=== PATIENT | male | born 1940 | race Caucasian/White ===

== ENCOUNTER 2019-10-01 10:31 | Outpatient (CLI) | payer MEDICARE, SELFPAY ==
[2019-10-01 11:05] LABS: Hematocrit 40.9 % (42.0-52.0); Hemoglobin 12.2 g/dL (14.0-18.0); Immature Reticulocyte Fraction 34.1 % (3.0-15.9); Mean Corpuscular HGB Conc 29.8 g/dl (32-36); Mean Corpuscular Hemoglobin 25.7 pg (26-34); Mean Corpuscular Volume 86.3 fl (80-100); Platelet Count Result 43 k/mm3 (150-375); Red Blood Count 4.74 M/mm3 (4.6-6.20); Red Cell Distribution Width 19.2 % (11.5-14.5); Reticulocyte Hemoglobin Conten 25.2 pg (28.2-35.7); Reticulocytes Absolute 0.18 B/L (32.2-175.7); White Blood Count 5.5 K/mm3 (4.5-10.0)
[2019-10-01 11:22] LABS: Band Neutrophils Percent 14 % (0-6); Lymphocytes Absolute Manual 1.59 K/mm3 (1.1-4.5); Metamyelocytes Percent 7 %; Monocytes Absolute Manual 0.55 K/mm3 (0.1-0.90); Monocytes Percent Manual 10 % (3-9); Myelocytes Percent 3 %; Neutrophils Percent Manual 37 % (46-73); Nucleated Red Blood Cells 2 %; Total Cells Counted 100
[2019-10-01 11:34] LABS: Atypical Lymphocytes Present
[2019-10-01 11:35] LABS: Ovalocytes 1+ (NORMAL); Tear Drop Cells 1+ (NORMAL)
[2019-10-01 11:44] LABS: Anisocytosis 1+ (NORMAL)
[2019-10-01 11:45] LABS: Poikilocytosis 2+ (NORMAL)
[2019-10-01 12:03] LABS: Platelet Estimate Decreased (Adequate)
[2019-10-01 14:29] LABS: Alanine Aminotransferase 17 U/L (4-50); Albumin Level 3.2 g/dL (3.5-5.1); Alkaline Phosphatase 156 U/L (38-126); Aspartate Amino Transferase 27 U/L (17-59); Bilirubin,Total 0.9 mg/dL (0.2-1.3); Blood Urea Nitrogen 17 mg/dL (9-20); Calcium 8.5 mg/dL (8.4-10.2); Carbon Dioxide 26 mmol/L (22-30); Chloride 100 mmol/L (98-107); Estimated Glomerular Filt Rate > 60; Glucose 100 mg/dL (75-110); Iron 39 ug/dL (49-181); Lactate Dehydrogenase 1545 U/L (313-618); Potassium 4.3 mmol/L (3.4-5.0); Sodium 135 mmol/L (137-145)
[2019-10-01 14:39] LABS: Percent Iron Saturation 14 % (20-50)
[2019-10-01 14:53] LABS: Hepatitis B Surface Antigen Negative (Negative)
[2019-10-01 15:02] LABS: HAV RESULT Negative (Negative)
[2019-10-01 15:03] LABS: Hepatitis B Core IgM Result Negative (Negative)
[2019-10-01 15:10] LABS: HIV 1/2 Ab P24 Ag Result Negative (Negative); Hepatitis C Virus Antibody Negative (Negative)
[2019-10-01 15:28] LABS: Folic Acid 11.3 ng/mL (2.76->20)
[2019-10-03 12:55] LABS: Methylmalonic Acid 421 nmol/L (87-318)
[2019-10-04 23:16] LABS: Kappa\\Lambda Light Chains 1.25 (0.26-1.65); Lambda Light Chain 23.6 mg/L (5.7-26.3)
[2019-10-05 23:18] LABS: Alpha 1 Globulin 0.5 g/dL (0.2-0.3); Alpha 2 Globulin 0.7 g/dL (0.5-0.9); Beta 1 Globulin 0.4 g/dL (0.4-0.6); Gamma Globulin 0.8 g/dL (0.8-1.7); Protein, Total 5.8 g/dL (6.1-8.1)
== END 2019-10-01 10:32 | disposition home or self-care (01) ==
LOC: ANHLAB 10:34
PROVIDERS: PCP Family Medicine; Visit Provider Internal Medicine Hematology & Oncology
DX: K72.90 Hepatic failure, unspecified without coma (principal); D69.59 Other secondary thrombocytopenia; D64.9 Anemia, unspecified
CPT/HCPCS: 36415; 80053; 82607; 82728; 82746; 83540; 83550; 83615; 83883; 83921; 84155; 84165; 84443; 85025; 85046; 86334; 86703; G0432

== ENCOUNTER 2019-10-28 08:59 | Outpatient (CLI) | payer MEDICARE, SELFPAY ==
--- NOTE | ~2019-10-28 | US_ITS ---
EXAMINATION: US abdomen complete EXAM DATE: 10/28/2019 10:15 INDICATION: Thrombocytopenia. TECHNIQUE: Multiple grayscale and Doppler images of the complete abdomen were obtained (by a technolo gist who performed the scan) and subsequently reviewed. Comparison is made to prior examination from 04/28/2010. FINDINGS: The abdominal aorta is normal in caliber. Visualized portion IVC is patent. The pancreatic head a nd body are normal in appearance. The pancreatic tail is not visualized. The liver has normal echogenicity and contour. There are no focal liver lesions identified. There is no evidence of intrahepatic biliary duct dilation. Portal venous flow was seen in the hepatopedal , normal direction and has normal Doppler waveform. Common bile duct measures 4-5 mm, which is normal. The gallbladder wall is normal in thickness, with expected amount of distention. No sonographic evidence of pericholecystic fluid. There is no cholel ithiases. Technologist performing exam reports patient did not demonstrate sonographic Nguyễn's sign. Please note that this sign is less reliable in patients who have received pain medication. Right kidney: There is normal contour and echogenicity. It measures 9.0 x 4.2 x 4.4 centimeters. T here are no focal renal lesions identified. There is no hydronephrosis. Left kidney: There is normal contour and echogenicity. It measures 11.5 x 4.8 x 4.5 centimeters. T here are no focal renal lesions identified. There is no hydronephrosis. The spleen measures 18.1 x 9.9 centimeters, significantly enlarged. IMPRESSION: 1. Moderate splenomegaly. Reviewed, dictated and finalized at location B. HER CUTTING MACHINE FEEDER IMPRESSION: 1. Moderate splenomegaly.
== END 2019-10-28 09:00 | disposition home or self-care (01) ==
LOC: ANHIMG 09:06
PROVIDERS: Visit Provider Internal Medicine Hematology & Oncology
DX: D69.59 Other secondary thrombocytopenia (principal); R16.1 Splenomegaly, not elsewhere classified
CPT/HCPCS: 76700

== ENCOUNTER 2019-10-28 10:20 | Outpatient (CLI) | payer MEDICARE, SELFPAY ==
[2019-11-01 14:22] LABS: BCR/abl Prior Result Not Given
[2019-11-01 15:09] LABS: BCR/abl P190 Not Detected; BCR/abl P210 Not Detected
[2019-11-01 15:10] LABS: BCR/abl P190 Chg YES; BCR/abl P210 Chg YES
== END 2019-10-28 10:21 | disposition home or self-care (01) ==
PROVIDERS: Visit Provider Internal Medicine Hematology & Oncology
DX: D72.829 Elevated white blood cell count, unspecified (principal)
CPT/HCPCS: 36415; 81206; 81207

== ENCOUNTER 2019-11-05 01:24 | Outpatient (CLI) | payer MEDICARE, SELFPAY ==
--- NOTE | ~2019-11-05 | BM_ITS ---
EXAMINATION: CCL bone marrow asp w bx diag DATE: 11/05/2019 08:43 INDICATION: Thrombocytopenia. TECHNIQUE: A time-out was performed to verify the patient's name, date of , and procedure to b e performed. The procedure including the risks, benefits, and alternatives was discussed with the pat ient. Risks discussed included bleeding and infection. The patient understood the risks and agreed to proceed. The skin overlying the right ilium was prepped and draped in usual sterile fashion. Anest hetic was administered with 1% lidocaine subcutaneously. 25 mcg fentanyl IV was given. An 11 gauge n eedle was inserted into the ilium with fluoroscopic guidance. Bone marrow was aspirated. An 8 gauge n eedle was then inserted into the ilium with fluoroscopic guidance. A core bone marrow biopsy was obta ined. There were no immediate complications. Fluoroscopy exposure time was 0.0 minutes. The total num matt of images was 6. FINDINGS: Real-time fluoroscopy demonstrates a marker overlying the right posterior superior iliac sp ine. IMPRESSION: 1. Fluoro-guided bone marrow aspiration. 2. Fluoro-guided bone marrow core biopsy. Reviewed, dictated and finalized at location A. INCT CAPTAIN
[2019-11-05 07:37] VITALS: BP 109/66; PULSE 82; RESP 12; TEMP 36.8; O2SAT 100
[2019-11-05 07:48] LABS: Hemoglobin 8.5 g/dL (14.0-18.0); Mean Corpuscular HGB Conc 29.3 g/dl (32-36); Mean Corpuscular Hemoglobin 25.5 pg (26-34); Mean Corpuscular Volume 87.1 fl (80-100); Mean Platelet Volume 10.4 fl (7.4-10.4); Red Blood Count 3.33 M/mm3 (4.6-6.20); Red Cell Distribution Width 18.7 % (11.5-14.5); White Blood Count 3.7 K/mm3 (4.5-10.0)
[2019-11-05 07:50] LABS: Prothrombin Time 13.1 Seconds (11.1-14.7)
[2019-11-05 07:56] LABS: Platelet Count Result 19 k/mm3 (150-375)
[2019-11-05 08:45] VITALS: BP 105/68; PULSE 74; RESP 14; TEMP 37; O2SAT 99
[2019-11-05 09:00] VITALS: BP 114/62; PULSE 77; RESP 13; O2SAT 100
[2019-11-05 09:15] VITALS: BP 95/62; PULSE 72; RESP 14; O2SAT 99
--- NOTE | 2019-11-05 09:43 | SUR.PHASEII ---
[id number] pt laying flat in bed, right posterior hip site assessed Q15 min, no signs of bleeding or hematoma, pressure dressing remains c/d/i. family at bedside, they visualized dressing for d/c home. 919 d/c instructions reviewed with patient, , and DIL at bedside, questions answered, all verbalize understanding, IV d/c'd, cath intact, pressure applied. 30 pt transferred via wc to main lobby entrance where his DIL drove them home in a private vehicle.
== END 2019-11-05 01:25 | disposition home or self-care (01) ==
PROVIDERS: Visit Provider Radiology Diagnostic Radiology
DX: D69.6 Thrombocytopenia, unspecified (principal)
CPT/HCPCS: 36415; 38222; 85027; 85610; 88184; 88185; 88305; 88311; 88312; 88313; 88342; 88360; J3010